=== PATIENT | male | born 1990 | race African-American/Black ===

== ENCOUNTER 2020-12-24 13:02 | Emergency (ER) | payer OTHER ==
[~2020-12-24] VITALS: Wt 86.2 kg
== END 2020-12-24 14:20 | disposition home or self-care (01) ==
LOC: ED 13:02
DX: N48.89 Other specified disorders of penis (principal); Z20.2 Contact with and (suspected) exposure to infections with a predominantly sexual mode of transmission

== ENCOUNTER 2021-01-24 19:08 | Emergency (ER) | payer OTHER ==
[~2021-01-24] VITALS: Wt 86.2 kg
[2021-01-24 21:30] LABS: BILIRUBIN Negative (Negative); BLOOD Negative (Negative); CLARITY Clear (Clear); COLOR Dark Yellow (Yellow); GLUCOSE Negative (Negative); KETONE 1+ (Negative); LEUKO ESTERASE 2+ (Negative); NITRITE Negative (Negative); PH 7.5 (4.5-8.0); SPECIFIC GRAVITY >= 1.030 (1.001-1.030)
[2021-01-24 21:43] LABS: MUCOUS 2+; WBC 51-100 wbc/hpf (0-5)
[2021-01-24 21:44] LABS: BACTERIA 1+
== END 2021-01-24 21:23 | disposition home or self-care (01) ==
LOC: ED 19:08
PROVIDERS: Nurse Practitioner
DX: Z20.2 Contact with and (suspected) exposure to infections with a predominantly sexual mode of transmission (principal)

== ENCOUNTER 2021-02-27 13:27 | Emergency (ER) | payer OTHER ==
[~2021-02-27] VITALS: Ht 170.1 cm; Wt 90.7 kg
== END 2021-02-27 16:27 | disposition home or self-care (01) ==
LOC: ED 13:27
DX: Z20.2 Contact with and (suspected) exposure to infections with a predominantly sexual mode of transmission (principal)